=== PATIENT | female | born 2005 | race Caucasian/White ===

== ENCOUNTER 2024-03-03 11:37 | Emergency (ER) | payer OTHER ==
[~2024-03-03 11:37] MED LIST: Iopamidol 370 76% 100 ML VIAL ONE
[2024-03-03 13:16] LABS: #Basophils 0.05 10x3/uL (0.0-0.2); #Eosinophils 0.04 10x3/uL (0.0-0.5); #Monocytes 0.75 10x3/uL (0.0-1.1); #Neutrophils 12.54 10x3/uL (1.5-8.4); %Basophils 0.3 % (0.0-2.0); %Eosinophils 0.3 % (0.0-6.0); %Monocytes 4.8 % (0.0-10.0); %Neutrophils 80.9 % (40.0-75.0); Hematocrit 40.5 % (34.9-44.5); Hemoglobin 13.4 g/dL (12.0-15.5); Mean Corpuscular HGB CONC 33.1 g/dL (32.0-36.0); Mean Corpuscular Hemoglobin 28.3 pg (27.0-33.0); Mean Corpuscular Volume 85.6 fL (81.6-98.3); Mean Platelet Volume 9.5 fL (7.4-10.4); Platelet Count 280 10x3/uL (150-450); RBC Distribution Width 12.6 % (11.5-14.5); Red Blood Cell (RBC) Count 4.73 10x6/uL (3.90-5.03); White Blood Cell (WBC) Count 15.5 10x3/uL (3.5-10.5)
[2024-03-03 13:17] LABS: ALT (SGPT) 18 U/L (8-55); AST (SGOT) 43 U/L (5-30); Albumin 3.8 g/dL (3.5-5.0); Alkaline Phosphatase 87 U/L (40-100); Anion Gap 16 mmol/L (10-20); BUN (Urea Nitrogen) 7 mg/dL (8.4-21.0); Bilirubin, Total 0.3 mg/dL (0.2-1.2); Calc. Creatinine Clearance 0 mL/min (70-130); Calcium 9.4 mg/dL (7.8-10.44); Carbon Dioxide 20 mmol/L (22-29); Chloride 108 mmol/L (98-107); Estimated GFR 128; Globulin 3.2 g/dL (2.4-3.5); Glucose 104 mg/dL (70-105); Potassium 4.1 mmol/L (3.5-5.1); Sodium 140 mmol/L (136-145)
[2024-03-03 13:38] LABS: Critical Call Chem Troponin I ERS.KW @1337; Troponin I 3.532 ng/mL (< 0.028)
[2024-03-03] MEDS ORDERED: Aspirin Chewable 81 MG TAB ONE (13:41)
[2024-03-03] MEDS ORDERED: Enoxaparin 60 MG (0.6 mL) SYRINGE ONE (13:41)
[2024-03-03 14:31] LABS: BHCG - Serum Negative (NEGATIVE); Pregs Control Background? CLEAR/WHITE (CLR/WHITE); Pregs Control Bar Appear? YES (CONTROL BAR)
[2024-03-03 15:42] LABS: Bilirubin Neg (Negative); Blood, Urine 50 (Negative); Clarity Clear (Clear); Glucose, Urine (Dipstick) Normal (Negative); Ketone, Urine Negative (Negative); Leukocyte 500 (Negative); Nitrite Negative (Negative); Protein, Urine (Dipstick) Negative (Neg-Trace); Urobilinogen Normal mg/dL (Less than 2)
[2024-03-03 15:45] LABS: Pregnancy Test - Urine (BHCG) Negative (Negative); Pregu Control Background? CLEAR/WHITE (CLR/WHITE); Pregu Control Bar Appear? YES (CONTROL BAR)
[2024-03-03 15:53] LABS: Amphetamine Not Detected (NotDetected); Barbiturates Screen Not Detected (NotDetected); Benzodiazepine Screen Not Detected (NotDetected); Cocaine Metabolite Screen Not Detected (NotDetected); Methadone Not Detected (NotDetected); Methamphetamine Not Detected (NotDetected); Opiate Screen Not Detected (NotDetected); Oxycodone Screen Not Detected (NotDetected); Phencyclidine (PCP) Not Detected (NotDetected); THC/Cannabinoid Screen Not Detected (NotDetected); Tricyclic Screen Not Detected (NotDetected)
[2024-03-03 15:55] LABS: Bacteria/HPF 1+ HPF (None Seen); CAUTI Indications for Culture Pelvic or flank pain
[2024-03-03 15:56] LABS: Squamous Epithelial 0-3 HPF (0-3)
[2024-03-03 15:58] LABS: Urine Culture Reflex Yes Yes
[2024-03-03] MEDS ORDERED: cefTRIAXone (ROCEPHIN) 1 GM VIAL ONE (16:03)
== END 2024-03-03 18:01 | disposition home or self-care (01) ==
LOC: CSHERS 11:37
DX: R07.9 Chest pain, unspecified (principal); R79.89 Other specified abnormal findings of blood chemistry; F90.9 Attention-deficit hyperactivity disorder, unspecified type
CPT/HCPCS: 36415; 71045; 71275; 80053; 80306; 81001; 81025; 84484; 84703; 85025; 87086; 87428; 93005; 94760; 96372; 96374; J0696; J1650; Q9967

== ENCOUNTER 2025-02-24 13:02 | Outpatient (CLI) | payer OTHER | END 2025-02-24 13:03 | disposition home or self-care (01) | LOC: CSHULT 13:02 | PROVIDERS: ATTEND Family Medicine | DX: N83.201 Unspecified ovarian cyst, right side (principal); N92.6 Irregular menstruation, unspecified; N92.0 Excessive and frequent menstruation with regular cycle; R42 Dizziness and giddiness | CPT/HCPCS: 76857 ==